=== PATIENT | female | born 1990 | race Caucasian/White ===

== ENCOUNTER → 2025-01-20 | Outpatient (CLI) | payer BC ==
[2025-01-20 12:20] LABS: BASOPHILS % 0.4 % (0.0-2.0); EOSINOPHILS % 0.8 % (0.0-5.0); HEMATOCRIT. 38.4 % (36.0-48.0); HEMOGLOBIN. 13.4 g/dL (12.0-16.0); MEAN CORPUSCULAR HEMOGLOBIN 30.3 pg (28.0-32.0); MEAN CORPUSCULAR HGB CONC 34.9 g/dL (31.0-37.0); MEAN CORPUSCULAR VOLUME 86.8 fL (81.0-99.0); MEAN PLATELET VOLUME 8.5 fl (7.4-10.4); MONOCYTES % 4.2 % (2.0-8.0); NEUTROPHILS % 65.6 % (40.0-76.0); PLATELET 296 x1000/uL (130-400); RED BLOOD CELL COUNT 4.42 mill/uL (4.2-5.4); RED CELL DISTRIBUTION WIDTH 13.7 % (11.6-14.6); WHITE BLOOD COUNT 10.8 x1000/uL (4.5-11.0)
[2025-01-20 12:28] LABS: CLARITY URINE CLEAR (CLEAR); COLOR URINE YELLOW (YELLOW); GLUCOSE URINE NEGATIVE (NEGATIVE); KETONES URINE NEGATIVE (NEGATIVE); LEUKOCYTE ESTERASE URINE NEGATIVE (NEGATIVE); NITRITE URINE NEGATIVE (NEGATIVE); OCCULT BLOOD URINE NEGATIVE (NEGATIVE); PH URINE 6.5 (4.5-8.0); PROTEIN URINE NEGATIVE (NEGATIVE); SPECIFIC GRAVITY URINE 1.006 (1.005-1.030); UROBILINOGEN URINE 0.2 E.U./dL (0.2-1.0)
[2025-01-20 12:38] LABS: CARBON DIOXIDE 24 mEq/L (21-32); CHLORIDE 103 mEq/L (98-107); POTASSIUM 4.1 mEq/L (3.5-5.1); SODIUM 139 mEq/L (136-145)
[2025-01-20 12:39] LABS: CALCIUM 9.5 mg/dL (8.7-10.4)
[2025-01-20 12:43] LABS: CREATININE 0.7 mg/dL (0.6-1.0); URIC ACID 7.1 mg/dL (3.1-7.8)
[2025-01-20 12:44] LABS: GLUCOSE 90 mg/dL (70-105); TRIGLYCERIDE 166 mg/dL (0-150); UREA NITROGEN BLOOD 9 mg/dL (9-23)
[2025-01-20 12:45] LABS: ALANINE AMINOTRANSFERASE 34 IU/L (10-49); ALBUMIN 4.7 g/dL (3.2-4.8); ASPARTATE AMINOTRANSFERASE 39 IU/L (<34); IRON 64 ug/dL (50-170); LDL CHOLESTEROL 152 mg/dL (5-100)
[2025-01-20 12:46] LABS: BILIRUBIN TOTAL 0.6 mg/dL (0.1-1.0); CHOLESTEROL 211 mg/dL (<200); HDL CHOLESTEROL 48 mg/dL (>65); PROTEIN TOTAL 7.6 g/dL (6.0-8.3)
[2025-01-20 12:48] LABS: TOTAL IRON BINDING CAPACITY 398 ug/dl (250-425)
[2025-01-20 12:50] LABS: FERRITIN 115 ng/mL (10-291); VITAMIN B12 SERUM 214 pg/mL (211-911)
[2025-01-20 13:01] LABS: HEPATITIS B SURFACE ANTIGEN NEGATIVE (Negative)
[2025-01-20 13:22] LABS: HEPATITIS A AB IGM NEGATIVE (Negative); HEPATITIS B CORE AB IGM NEGATIVE (Negative)
[2025-01-20 13:23] LABS: HEPATITIS C AB NON REACTIVE (Neg) (Negative)
[2025-01-21 07:24] LABS: FOLICLE STIMULATING HORMONE 2.8 mIU/mL (.); LUTEINIZING HORMONE 5.2 mIU/mL (.); VITAMIN D 25-OH 17.2 ng/mL (30.0-100.0)
== END | disposition home or self-care (01) ==
LOC: US 08:25
PROVIDERS: ATTEND Internal Medicine Geriatric Medicine
DX: N88.8 Other specified noninflammatory disorders of cervix uteri (principal); N91.1 Secondary amenorrhea; Z00.01 Encounter for general adult medical examination with abnormal findings
CPT/HCPCS: 36415; 76830; 76856; 80053; 80061; 80074; 81003; 82306; 82607; 82728; 83001; 83002; 83036; 83540; 83550; 84443; 84550; 85025; 86592; 86705; 86709; 87340

== ENCOUNTER → 2025-05-26 | Outpatient (CLI) | payer BC ==
[2025-05-26 12:28] LABS: CREATININE 0.8 mg/dL (0.6-1.0); UREA NITROGEN BLOOD 9 mg/dL (9-23)
[2025-05-26 12:30] LABS: ASPARTATE AMINOTRANSFERASE 17 IU/L (<34); BILIRUBIN TOTAL 0.7 mg/dL (0.1-1.0); PROTEIN TOTAL 7.5 g/dL (6.0-8.3); VITAMIN B12 SERUM 899 pg/mL (211-911)
[2025-05-28 09:12] LABS: FOLICLE STIMULATING HORMONE 4.8 mIU/mL (.); LUTEINIZING HORMONE 4.2 mIU/mL (.); PROLACTIN 10.8 ng/mL (4.8-33.4)
[2025-05-30 09:10] LABS: TESTOSTERONE FREE 8.0 pg/mL (0.0-4.2)
[2025-06-01 13:11] LABS: ANTI-PARIETAL CELL AB 1.9 Units (0.0-20.0)
== END | disposition home or self-care (01) ==
LOC: LAB 09:00
PROVIDERS: ATTEND Internal Medicine Geriatric Medicine
DX: E53.8 Deficiency of other specified B group vitamins (principal); E66.9 Obesity, unspecified
CPT/HCPCS: 36415; 80053; 82607; 83001; 83002; 84146; 84402